=== PATIENT | female | born 1970 | race Caucasian/White ===

== ENCOUNTER 2022-03-30 07:34 | Emergency (ER) | payer BC, SELFPAY ==
[2022-03-30 07:40] VITALS: BP 136/86; PULSE 83; RESP 20; TEMP 36.1; O2SAT 100; BMI 20.8
[2022-03-30] MEDS: 0.9 % SODIUM CHLORIDE 1000 ml 1,000 ML IV ×2 (08:48→10:21)
[2022-03-30] MEDS: KETOROLAC 30 MG/ML inj IVP (08:53)
[2022-03-30] MEDS: diphenhydrAMINE 50 MG/ML inj 25 MG IVP (08:54)
[2022-03-30] MEDS: METOCLOPRAMIDE HCL 10 MG in 0.9 % SODIUM CHLORIDE 100 ml 100 ML 306 MG IV (08:57)
--- NOTE | 2022-03-30 09:31 | ED.HA ---
HPI - Headache General Date Seen: 03/30/22 Chief Complaint: Headache/Migraine Stated Complaint: Migraine Time Seen by Provider: 03/30/22 07:53 Source: patient Mode of arrival: ambulatory Limitations: no limitations History of Present Illness HPI Narrative: Patient is 51-year-old female who presents here with a headache, headache is been since 5:00 a.m. this morning. She had woken up, and did not wake her from sleep. She has a history of these type headaches, she describes it as bitemporal were seemingly on the right side of her head. Associated with photophobia, and some nausea. She usually gets treatment for headaches in the emergency room. In fluids and medications seem to work well for her. She does not want to get IM medications as she has had last time she had do physical therapy to get rid of the pain associated with this. Denies fevers chills or sweats, she is COVID non vaccinated. No coughing shortness of breath, abdominal pain, recent tick bites rashes, or other high risk features such as history of cancer. I did reviewing her chart she has multiple visits here on the previous EHR, that I am able to confirmed, she usually gets nonnarcotic medications, and IV fluids, she has had 7 visits to the emergency room for headaches in the last 4 years. MD elicited complaint: headache Related Data Home Medications Medication Instructions Recorded Confirmed No Known Home Medications 03/30/22 03/30/22 Allergies Allergy/AdvReac Type Severity Reaction Status Date / Time No Known Drug Allergies Allergy Verified 03/30/22 07:50 Review of Systems Status of ROS: Reports: 10 or more systems reviewed and unremarkable except as noted in History and below [facility] Social History Smoking Status: Never smoker Do you use any of these nicotine containing products: None Second hand tobacco smoke exposure: Yes How often do you have a drink containing alcohol: never How often do you have six or more drinks on one occasion: Never AUDIT-C Alcohol total score: 0 Non-prescribed substance use: over the counter (eg: immodium) Non-prescribed substance use details: tylenol service: No Exam Narrative: Exam Narrative: Patient is no apparent distress she is photophobic in the room. But cooperative oriented x3. Her pupils are equal round reactive to light she tracks normally with absence of nystagmus. There is no swelling noted of her face her cranial nerves 3-12 are otherwise normal her TMs are normal bilaterally her neck is supple and full range of motion is listed with the absence of meningismus. Mouth opening is normal there is no swelling of her oropharynx. Or any redness swelling or other issues. There is no lymphadenopathy anterior posterior chains. Carotid upstrokes are equal bilaterally. Somewhat tender to palpation over her temples bilaterally. Chest is good air entry bilateral with no wheezing crackles noted heart sounds no clicks murmurs gallops her abdomen is soft there is no guarding approximately she was all extremities independently and well. Fingers nose testing are normal for me in the room. She appears to be right-handed. Heel-kwan testing is normal also. Skin reveals no petechiae or rashes Const: Vital Signs, click to edit/add: Vital Signs - 24 hr 03/30/22 07:40 03/30/22 11:31 Temperature 97 F L 98 F Pulse Rate [Pulse Oximeter] 83 55 L Respiratory Rate 20 16 Blood Pressure [Le ft Upper Arm] 136/86 110/72 Pulse Oximetry 100 98 Documenting provider has reviewed patient's vital signs: yes Course Course Hospital Course: Patient improved with the treatment here. If this is Petty to previous treatments at work for her. She reported to me when I checked on her at 11:00 a.m.. That her headache was much improved. She was on the road to recovery. I think at this point once her fluids finish off we can discharge her home. Vital Signs Vital signs: Initial Vital Signs Temperature 97 F L 03/30/22 07:40 Temperature Source Temporal Artery Scan 03/30/22 07:40 Pulse Rate 83 03/30/22 07:40 Pulse Rhythm 03/30/22 07:40 Respiratory Rate 20 03/30/22 07:40 Blood Pressure 136/86 03/30/22 07:40 Blood Pressure Mean 102 03/30/22 07:40 Pulse Oximetry 100 03/30/22 07:40 Oxygen Delivery Method 03/30/22 07:40 Vital Signs Temperature 97 F L 03/30/22 07:40 Pulse Rate 83 03/30/22 07:40 Respiratory Rate 20 03/30/22 07:40 Blood Pressure 136/86 03/30/22 07:40 Pulse Oximetry 100 03/30/22 07:40 Temperature 98 F 03/30/22 11:31 Pulse Rate 55 L 03/30/22 11:31 Respiratory Rate 16 03/30/22 11:31 Blood Pressure 110/72 03/30/22 11:31 Pulse Oximetry 98 03/30/22 11:31 MDM - Headache MDM Narrative Medical decision making narrative: Life-threatening differential diagnosis include subarachnoid hemorrhage, meningitis, encephalitis, carbon monoxide poisoning, and intracerebral hemorrhage. Other differential diagnosis include but not limited to migraine, cluster headache, tension headache, [employer] vasculitis, mass lesion, temporal arteritis, click acute closed angle glaucoma, septal and trigeminal neuralgia, sinusitis, closed head injury, and stroke I discussed with her we can try some IV fluids nonnarcotic measures. I do not think laboratory tests will be helpful here. As she does not seem toxic and nor does seem out of the ordinary for her normal presentation. I did talk with her in detail about chronic medication use. That may help this in both decreasing the frequency and able to be used at home. Sounds like she has only used Maxalt before. She was not able to really grasp the idea of taking medications every dated decrease the frequency and says these do not happen very much. 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 She does not have a primary care physician and I recommend that she has 1 can talk to her about this. Differential Diagnosis Differential diagnosis: Likely migraine, tension headache, subarachnoid hemorrhage, headache, meningitis, sinusitis and postconcussion syndrome Medical Records Attestation: I reviewed the patient's medical records. Discharge Plan Discharge Clinical Impression: Migraine Patient Disposition: Home w/ Parent or Adult Condition: Improved Instructions: Migraine Headache (ED) Additional Instructions: Home rest and sleep for the rest today. He will be tired, often is appropriate along with caffeine for the headache if you feel that that is worked in the past. Follow-up with primary care and I did list a primary care physician here that you can see. I do think that close follow-up with primary care to think about other modalities is very important for these chronic situations such as migraine headaches. Activity Level: No Restrictions Prescriptions: No Action No Known Home Medications 0RF Follow Up/Referrals: Provider,Not a Local [Primary Care Provider] - Vania Marcus DO [Staff Physician] - Stand Alone Forms: [facility] Info Instructions
[2022-03-30 11:31] VITALS: BP 110/72; PULSE 55; RESP 16; TEMP 36.6; O2SAT 98
== END 2022-03-30 11:35 | disposition home or self-care (01) ==
PROVIDERS: Emergency Provider Family Medicine
DX: G43.909 Migraine, unspecified, not intractable, without status migrainosus (principal)
CPT/HCPCS: 96374; 96375; 99283; 99284; J1200; J1885; J2765; J7030